=== PATIENT | female | born 1970 ===

== ENCOUNTER 2018-07-25 07:43 | Emergency (ER) | payer MEDICAID ==
[2018-07-25 07:56] VITALS: BP 143/90; PULSE 72; RESP 18; TEMP 97.9; O2SAT 100
[2018-07-25 07:57] VITALS: BMI 30.9
--- NOTE | 2018-07-25 07:57 | ED PDOC ---
HPI: Back Chief Complaint (Provider): Lower abdominal pain. History Per: Patient History/Exam Limitations: no limitations Onset/Duration Of Symptoms: Hrs Current Symptoms Are (Timing): Still Present Quality Of Discomfort: Sharp Severity: Severe Pain Scale Rating Of: 10 Previous Symptoms: Back Pain (chronic from herniated disc and sciatica) Associated Symptoms: None Exacerbating Factor(s): Movement Additional Complaint(s): 48 yo female with history of HIV, Right sided sciatica and herniated disc (L3,L4 and L5) presented to the ED after sustaining a back injury and falling to the floor @ 6:20 am this morning. 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 Denies LOC and denies hitting her head. Soon afterwards she reports she could not walk well on her own and had her boyfriend and daughter pick her up and help her walk. Pain is 10/10, sharp and located all of lower back, radiating to her right shoulder. Deep breathing helps relieve the pain mildly and movement makes it worse. Denies urinary or fecal incontinence, IVDU, previous oral steroid medication use, fevers, chills, abdominal pain, previous history of cancer, diarrhea. PMD: Dr. Driver Orthopedic: Dr. Monaco <Ashleigh Gu - Last Filed: 07/25/18 09:31> <Orlando Bourgeois - Last Filed: 07/25/18 09:36> Time Seen by Provider: 07/25/18 07:51 Chief Complaint (Nursing): Back Pain Past Medical History Reviewed: Historical Data, Nursing Documentation, Vital Signs Vital Signs: Last Vital Signs Temp 97.9 F 07/25/18 07:56 Pulse 72 07/25/18 07:56 Resp 18 07/25/18 07:56 BP 143/90 07/25/18 07:56 Pulse Ox 100 07/25/18 07:56 Primary Care Provider: Ruth Alvarez - Medical History PMH: HIV Other PMH: Herniated disc (L3-L5); Sciatica on the right - Surgical History Other surgeries: Left knee meniscus repair in 2009 - Family History Family History: States: Unknown Family Hx - Social History Current smoker - smoking cessation education provided: No Ex-Smoker (has not smoked in the last 12 months): No Alcohol: None Drugs: Denies, Other (Denies IVDU) <Ashleigh Gu - Last Filed: 07/25/18 09:31> Vital Signs: Last Vital Signs Temp 97.9 F 07/25/18 07:56 Pulse 72 07/25/18 07:56 Resp 18 07/25/18 07:56 BP 143/90 07/25/18 07:56 Pulse Ox 100 07/25/18 09:31 <Orlando Bourgeois - Last Filed: 07/25/18 09:36> - Home Medications Home Medications: Ambulatory Orders Medication Instructions Recorded Diazepam [Valium] 2 mg PO BID PRN #6 tab 07/25/18 Ibuprofen [Motrin] 600 mg PO TID 7 Days tab 07/25/18 Lidocaine 5% [Lidoderm] 1 ea TD DAILY PRN #5 patch 07/25/18 - Allergies Allergies/Adverse Reactions: Allergies Allergy/AdvReac Type Severity Reaction Status Date / Time No Known Allergies Allergy Verified 07/25/18 07:55 Supervising Attending Note - Supervising Attending Note The Documented history was done by the: Physician [employer] Inspector The documented physical exam was done by the: Physician [employer] Inspector The documented procedures were done by the: Physician [employer] Inspector - Attestation: I have personally seen and examined this patient.: Yes I have fully participated in the care of the patient.: Yes I have reviewed all pertinent clinical information: Yes - Notes: Notes:: Back pain from fall. No numbness, tingles, incontinence, constipation. <Orlando Bourgeois M - Last Filed: 07/25/18 09:36> Review of Systems Constitutional: Negative for: Fever, Chills Cardiovascular: Negative for: Chest Pain, Palpitations Respiratory: Negative for: Cough, SOB with Exertion Gastrointestinal: Negative for: Nausea, Vomiting, Abdominal Pain, Diarrhea Genitourinary Female: Negative for: Dysuria, Frequency Musculoskeletal: Positive for: Shoulder Pain, Back Pain. Negative for: Neck Pain Skin: Negative for: Bruising Neurological: Negative for: Weakness, Numbness <Ashleigh Gu - Last Filed: 07/25/18 09:31> Physical Exam - Reviewed Vital Signs Reviewed: Yes - Physical Exam Appears: Positive for: Uncomfortable (Staying rigid in the hospital bed as she reports movement makes the pain worse) Head Exam: Positive for: ATRAUMATIC, NORMAL INSPECTION Skin: Positive for: Normal Color, Warm, Dry Neck: Positive for: Normal, Supple Cardiovascular/Chest: Positive for: Regular Rate, Rhythm (S1 and S2 appreciated on exam ). Negative for: Murmur Respiratory: Positive for: Normal Breath Sounds. Negative for: Decreased Breath Sounds, Accessory Muscle Use, Crackles, Rales, Rhonchi, Stridor, Wheezing Gastrointestinal/Abdominal: Positive for: Normal Exam, Bowel Sounds, Soft. Negative for: Tenderness, Guarding, Rebound Back: Positive for: Normal Inspection, Vertebral Tenderness (Lumbar vertebral tenderness; paraspinal tenderness. ), Decreased ROM, Other (Straight leg testing positive when leg raised > 30 degrees bilaterally. ). Negative for: L CVA Tenderness, R CVA Tenderness Extremity: Positive for: Normal ROM, Swelling (right knee swelling- chronic as per patient), Other (+2 dorsalis pedis and tibialis posterior present bilateral ly.). Negative for: Tenderness, Pedal Edema, Calf Tenderness Neurological/Psych: Positive for: Awake, Alert <Ashleigh Gu - Last Filed: 07/25/18 09:31> - Physical Exam Cardiovascular/Chest: Positive for: Regular Rate, Rhythm Respiratory: Positive for: Normal Breath Sounds Gastrointestinal/Abdominal: Positive for: Soft. Negative for: Tenderness Back: Positive for: Vertebral Tenderness <Orlando Bourgeois - Last Filed: 07/25/18 09:36> - ECG O2 Sat by Pulse Oximetry: 100 - Progress ED Course And Treament: 48 yo female with history of HIV, Right sided sciatica and herniated disc (L3,L4 and L5) presented to the ED after sustaining a back injury and falling to the floor. Differential: Back injury Plan: -- Toradol 15 mg IM x1 -- Valium 5mg po x1 -- Lidoderm patch 5% to be placed on lower back -- Lumbar Xray Re-examined @ 0915 - Patient reports mild relief of back pain. - Lumbar Xray evidence of chronic changes. No fractures. - Patient stable to be discharged home at this time with prescriptions for Ibuprofen, valium and lidoderm patch. - F/U with PMD <Ashleigh Gu - Last Filed: 07/25/18 09:31> - ECG Pulse Ox Interpretation: Normal - Progress ED Course And Treament: 935: Chronic back pain. No acute findings. Fu with pcp. Ambulated with no issues. AAOx3. <Orlando Bourgeois - Last Filed: 07/25/18 09:36> Disposition <Ashleigh Gu - Last Filed: 07/25/18 09:31> - Disposition Disposition Time: 08:10 <Orlando Bourgeois - Last Filed: 07/25/18 09:36> - Clinical Impression Clinical Impression: Back pain - Disposition Referrals: [facility] [Outside] - 07/28/18 Condition: STABLE Additional Instructions: Return if not better in 3 days. Prescriptions: Diazepam [Valium] 2 mg PO BID PRN #6 tab PRN Reason: Muscle Spasm Ibuprofen [Motrin] 600 mg PO TID 7 Days tab Lidocaine 5% [Lidoderm] 1 ea TD DAILY PRN #5 patch PRN Reason: Pain, Moderate (4-7) Instructions: Low Back Pain in Adults Forms: [facility] ED School/Work Excuse
[2018-07-25] MEDS ORDERED: Lidocaine 5% Patch TD ONE (08:24)
[2018-07-25] MEDS ORDERED: Lidocaine 5% Patch TD SCH (09:00)
--- NOTE | 2018-07-25 09:18 | RAD ---
Date of service: 07/25/2018 PROCEDURE: Radiographs of the Lumbar Spine. HISTORY: lOWER BACK PAIN S/P INJURY COMPARISON: No prior. TECHNIQUE: 5 views obtained. FINDINGS: BONES: Mild straightening of the upper lumbar curvature. No fracture or spondylolisthesis appreciable. DISC SPACES: Mild disc height loss identified at L5-S1 with intervertebral disc spaces otherwise unremarkable. Minimal spondylosis is seen at L4-5. OTHER FINDINGS: None. IMPRESSION: There degenerative disease identified L4-5 and L5-S1 and there is mild straightening of the upper lumbar curvature. No fracture or spondylolisthesis identified
== END 2018-07-25 09:43 | disposition home or self-care (01) ==
LOC: H.ER 07:43
DX: M54.5 Low back pain (principal); G89.29 Other chronic pain; M51.36 Other intervertebral disc degeneration, lumbar region; Z87.891 Personal history of nicotine dependence
CPT/HCPCS: 72114; 81025; 96372; 99283; J1885